=== PATIENT | female | born 1935 | race Caucasian/White ===

== ENCOUNTER → 2016-04-15 | Outpatient (CLI) | payer MEDICARE ==
[~2016-04-15] MED LIST: AC325T PO; ACHYD1T PO; ALBU2.5V12 INH; AMIO200T7 PO; ASPI-586 PO; ATOR20TA PO; ATOR40TA2 PO; BENZ-22 PO; BISA10SU6 RC; BISM262O PO; BMT1T PO; BUME2TAB3 PO; CALC-140 PO; CALC-676 PO; CARV12.52 PO; CARV25TA30 PO; CEPH-507 PO; CHOL10002 PO; CHOL200018 PO; CLIN-78 PO; DOCU100C8 PO; ECON15CR TP; FAMO-119 PO; FERR-74 PO; FERROUS GLUCON325 M2 PO; FLUT30CR2 TP; FRSM40T PO; FURO40TA4 PO; FURO80TA62 PO; HCT25T PO; HDRL25T PO; HYDR-3811 PO; HYDR-3921 PO; HYDR25CA PO; ISOS30TA7 PO; KCL10CCR PO; LOPE2CAP29 PO; LSRT50T PO; LVF500T PO; LVT.05T PO; MAG30ORA PO; MAG355OR17 PO; MAGN400O7 PO; MECL-105 PO; METAMUCIL425 GM PO; METO2.5T PO; NFLOSA25TA PO; NITR100C3 PO; NST15PW TOP; NTR.4SL SL; NYST30CR TOP; NYST30OI6 TOP; OMEP20CA12 PO; OMEP40CA36 PO; ONDA4TAB8 PO; OXB5T PO; OXYB5TAB9 PO; POLY17PO2 PO; POTA10TA10 PO; POTA10TA12 PO; POTA10TA36 PO; POTA10TA6 PO; PRAM0.12 PO; PRM25T PO; RIVA20TA PO; SERT50TA9 PO; SPRN25T PO; TRM50T PO; WARF1TAB6 PO; WARF2.5T PO; WARF3TAB PO; WRF2T PO; WRF3T PO; [UNRECOGNIZED DRUG - CODE] PO; [UNRECOGNIZED DRUG - OTHER] PO
[2016-04-15 11:00] LABS: BASOPHILS % (AUTO) 1 % (0-2); EOSINOPHILS # (AUTO) 0.1 10^3uL; EOSINOPHILS % (AUTO) 1 % (0-4); LYMPHOCYTES # (AUTO) 0.4 X10^3; MEAN CORPUSCULAR VOLUME 81 FL (80-100); MEAN PLATELET VOLUME 10.8 FL (6.0-9.5); MONOCYTES # (AUTO) 0.5 X10^3; MONOCYTES % (AUTO) 10 % (3-11); NEUTROPHILS # (AUTO) 4.3 X10^3; NEUTROPHILS % (AUTO) 80 % (51-67); PLATELET COUNT 159 10^3uL (150-450); WHITE BLOOD COUNT 5.37 10^3uL (4.0-11.0)
[2016-04-15 11:59] LABS: MEAN CORPUSCULAR HEMOGLOBIN 25.8 PG (26.0-34.0)
--- NOTE | 2016-04-15 12:00 | Diagnostic Imaging Report ---
PROCEDURE: CT abdomen and pelvis without contrast. TECHNIQUE: Multiple contiguous axial images were obtained through the abdomen and pelvis without the use of intravenous contrast. INDICATION: Abdominal pain with pedal edema. COMPARISON: CT chest, abdomen, pelvis of 02/07/2016. FINDINGS: There has been development of a small right and trace left pleural effusion. There is a small amount of relaxation atelectasis in the right lung base. Cardiomegaly without pericardial effusion. Coronary artery calcifications are present with partially imaged changes of CABG. Extensive calcifications of the aorta. Compared to prior exam, there has been progression in the abdominal ascites which is now small to moderate in volume. There is surface nodularity of the liver suggestive of cirrhosis. There are scattered calcified granulomas within the liver. Otherwise, no focal hepatic lesion seen by noncontrast imaging. Numerous calcified splenic granulomas are present and unchanged. By noncontrast imaging, the pancreas and adrenals are normal. Unchanged peripherally calcified cyst in the lower pole of the right kidney. Stable calcifications in the left renal hilum which are likely vascular in nature. No definite renal or ureteral calculi. Urinary bladder is distended without wall thickening. Status post hysterectomy. No pericolonic inflammatory changes are seen. There are surgical changes of right hemicolectomy with enterocolonic anastomosis in the right upper quadrant. No abdominal or pelvic lymphadenopathy. Numerous subcentimeter upper abdominal lymph nodes are likely reactive in nature. There is extensive vascular calcification of the abdominal aorta, which is normal in caliber. No concerning osseous lesions. Development of diffuse body wall edema indicative of anasarca. IMPRESSION: 1. Development of small to moderate abdominopelvic ascites, small pleural effusions and body wall edema. Findings suggest third spacing. 2. Question of nodular surface morphology of the liver which raises the concern for cirrhosis. Correlation with lab values is suggested. 3. Prior right hemicolectomy. No bowel obstruction. 4. Extensive vascular calcifications. Dictated by: Dictated on workstation # [id number]
[2016-04-15 14:32] LABS: ALBUMIN 3.8 g/dL (3.4-5.0); ANION GAP 18.1 MEQ/L (3-15); PHOSPHORUS 4.5 mg/dL (2.4-4.9)
== END ==
LOC: RAD 10:38
PROVIDERS: ATTEND Internal Medicine
DX: R10.84 Generalized abdominal pain (principal); I25.10 Atherosclerotic heart disease of native coronary artery without angina pectoris; I50.42 Chronic combined systolic (congestive) and diastolic (congestive) heart failure; R60.0 Localized edema; R18.8 Other ascites
CPT/HCPCS: 36415; 74176; 80069; 83880; 84450; 85025; 85610; 86140

== ENCOUNTER → 2016-05-01 | Outpatient (REF) | payer MEDICARE ==
[2016-05-01 11:24] LABS: ANION GAP 19.1 MEQ/L (3-15)
== END ==
LOC: LAB 10:47
PROVIDERS: ATTEND Internal Medicine
DX: Z51.81 Encounter for therapeutic drug level monitoring (principal); Z79.01 Long term (current) use of anticoagulants; R60.0 Localized edema
CPT/HCPCS: 80048; 85610

== ENCOUNTER → 2016-05-08 | Outpatient (REF) | payer MEDICARE ==
[2016-05-08 11:12] LABS: ANION GAP 17.9 MEQ/L (3-15)
== END ==
LOC: LAB 10:15
PROVIDERS: ATTEND Internal Medicine
DX: Z51.81 Encounter for therapeutic drug level monitoring (principal); Z79.01 Long term (current) use of anticoagulants; I25.10 Atherosclerotic heart disease of native coronary artery without angina pectoris; J44.9 Chronic obstructive pulmonary disease, unspecified
CPT/HCPCS: 80048; 85610

== ENCOUNTER → 2016-05-15 | Outpatient (REF) | payer MEDICARE ==
[2016-05-15 09:57] LABS: BASOPHILS % (AUTO) 1 % (0-2); EOSINOPHILS # (AUTO) 0.1 10^3uL; EOSINOPHILS % (AUTO) 2 % (0-4); LYMPHOCYTES # (AUTO) 0.8 X10^3; MEAN CORPUSCULAR HGB CONC 32.2 g/dL (31.0-37.0); MEAN CORPUSCULAR VOLUME 81 FL (80-100); MEAN PLATELET VOLUME 11.5 FL (6.0-9.5); MONOCYTES # (AUTO) 0.7 X10^3; MONOCYTES % (AUTO) 9 % (3-11); NEUTROPHILS # (AUTO) 5.6 X10^3; NEUTROPHILS % (AUTO) 78 % (51-67); PLATELET COUNT 180 10^3uL (150-450); WHITE BLOOD COUNT 7.19 10^3uL (4.0-11.0)
[2016-05-15 10:06] LABS: MEAN CORPUSCULAR HEMOGLOBIN 26.1 PG (26.0-34.0)
[2016-05-15 10:11] LABS: ANION GAP 18.3 MEQ/L (3-15)
== END ==
LOC: LAB 09:38
PROVIDERS: ATTEND Internal Medicine
DX: I50.9 Heart failure, unspecified (principal); I48.91 Unspecified atrial fibrillation; D50.9 Iron deficiency anemia, unspecified
CPT/HCPCS: 80048; 84450; 85025; 85610; 86140

== ENCOUNTER → 2016-05-21 | Outpatient (REF) | payer MEDICARE ==
[2016-05-21 09:55] LABS: ALBUMIN 4.2 g/dL (3.4-5.0); ANION GAP 17.9 MEQ/L (3-15); PHOSPHORUS 5.3 mg/dL (2.4-4.9)
== END ==
LOC: LAB 09:13
PROVIDERS: ATTEND Internal Medicine
DX: I50.42 Chronic combined systolic (congestive) and diastolic (congestive) heart failure (principal); N18.4 Chronic kidney disease, stage 4 (severe); I48.2 Chronic atrial fibrillation; I25.10 Atherosclerotic heart disease of native coronary artery without angina pectoris; F01.51 Vascular dementia, unspecified severity, with behavioral disturbance
CPT/HCPCS: 80069; 82607; 84443; 85652

== ENCOUNTER → 2016-05-27 | Outpatient (REF) | payer MEDICARE | LOC: LAB 09:25 | PROVIDERS: ATTEND Internal Medicine | DX: I48.2 Chronic atrial fibrillation (principal) | CPT/HCPCS: 85610 ==

== ENCOUNTER → 2016-06-03 | Outpatient (REF) | payer MEDICARE ==
[2016-06-03 10:55] LABS: ALBUMIN 3.9 g/dL (3.4-5.0); ANION GAP 18.6 MEQ/L (3-15); PHOSPHORUS 4.8 mg/dL (2.4-4.9)
== END ==
LOC: LAB 10:20
PROVIDERS: ATTEND Internal Medicine
DX: I10 Essential (primary) hypertension (principal)
CPT/HCPCS: 80069

== ENCOUNTER → 2016-06-10 | Outpatient (REF) | payer MEDICARE ==
[2016-06-10 10:13] LABS: BASOPHILS % (AUTO) 1 % (0-2); EOSINOPHILS # (AUTO) 0.1 10^3uL; EOSINOPHILS % (AUTO) 1 % (0-4); LYMPHOCYTES # (AUTO) 0.6 X10^3; MEAN CORPUSCULAR HGB CONC 32.6 g/dL (31.0-37.0); MEAN CORPUSCULAR VOLUME 86 FL (80-100); MONOCYTES # (AUTO) 0.6 X10^3; MONOCYTES % (AUTO) 11 % (3-11); NEUTROPHILS # (AUTO) 4.3 X10^3; NEUTROPHILS % (AUTO) 77 % (51-67); PLATELET COUNT 144 10^3uL (150-450)
== END ==
LOC: LAB 09:52
PROVIDERS: ATTEND Internal Medicine
DX: Z51.81 Encounter for therapeutic drug level monitoring (principal); Z79.01 Long term (current) use of anticoagulants; I10 Essential (primary) hypertension
CPT/HCPCS: 85025; 85610

== ENCOUNTER → 2016-06-11 | Outpatient (REF) | payer MEDICARE | LOC: LAB 09:47 | PROVIDERS: ATTEND Internal Medicine | DX: N39.0 Urinary tract infection, site not specified (principal) | CPT/HCPCS: 82570 ==

== ENCOUNTER → 2016-06-12 | Outpatient (REF) | payer MEDICARE ==
[2016-06-12 10:55] LABS: ALBUMIN 3.9 g/dL (3.4-5.0); ANION GAP 16.5 MEQ/L (3-15); PHOSPHORUS 4.6 mg/dL (2.4-4.9)
== END ==
LOC: LAB 09:49
PROVIDERS: ATTEND Internal Medicine
DX: Z51.81 Encounter for therapeutic drug level monitoring (principal); Z79.01 Long term (current) use of anticoagulants; N18.9 Chronic kidney disease, unspecified
CPT/HCPCS: 80069; 85610

== ENCOUNTER → 2016-06-15 | Outpatient (REF) | payer MEDICARE | LOC: LAB 09:58 | PROVIDERS: ATTEND Internal Medicine | DX: N18.4 Chronic kidney disease, stage 4 (severe) (principal) | CPT/HCPCS: 80048; 82570; 84300 ==

== ENCOUNTER → 2016-06-16 | Outpatient (CLI) | payer MEDICARE | LOC: RAD 10:02 | PROVIDERS: ATTEND Internal Medicine Nephrology | DX: R33.9 Retention of urine, unspecified (principal); N28.1 Cyst of kidney, acquired | CPT/HCPCS: 76770 ==

== ENCOUNTER → 2016-06-17 | Outpatient (REF) | payer MEDICARE | LOC: LAB 10:58 | PROVIDERS: ATTEND Internal Medicine | DX: Z51.81 Encounter for therapeutic drug level monitoring (principal); Z79.01 Long term (current) use of anticoagulants | CPT/HCPCS: 85610 ==

== ENCOUNTER → 2016-06-24 | Outpatient (CLI) | payer MEDICARE ==
[2016-06-24 10:29] LABS: ALBUMIN 3.7 g/dL (3.4-5.0); ANION GAP 17.9 MEQ/L (3-15); PHOSPHORUS 5.3 mg/dL (2.4-4.9)
== END ==
LOC: LAB 10:02
PROVIDERS: ATTEND Internal Medicine
DX: N18.4 Chronic kidney disease, stage 4 (severe) (principal); I48.2 Chronic atrial fibrillation
CPT/HCPCS: 80069; 85610

== ENCOUNTER 2016-06-26 13:00 | Outpatient (RCR) | payer MEDICARE ==
[~2016-06-26 13:00] MED LIST changes: -BISA10SU6 RC; -BISM262O PO; -MAG355OR17 PO; -PRM25T PO; -WARF1TAB6 PO
[2016-06-28] MEDS ORDERED: WARF1TAB6 PO (23:10)
[2016-06-28] MEDS ORDERED: METO2.5T PO (23:10)
[2016-06-28] MEDS ORDERED: BUME2TAB3 PO (23:11)
[2016-06-29] MEDS ORDERED: PRM25T PO (11:46)
[2016-06-29] MEDS ORDERED: MAG355OR17 PO (11:46)
[2016-06-29] MEDS ORDERED: BUME2TAB3 PO (11:46)
[2016-06-29] MEDS ORDERED: AC325T PO (11:46)
[2016-06-29] MEDS ORDERED: BISM262O PO (11:46)
[2016-06-29] MEDS ORDERED: BISA10SU6 RC (11:46)
== END 2016-08-31 | disposition home or self-care (01) ==
LOC: DT 13:00
PROVIDERS: ATTEND Internal Medicine
DX: E66.09 Other obesity due to excess calories (principal); N18.3 Chronic kidney disease, stage 3 (moderate); Z68.38 Body mass index [BMI] 38.0-38.9, adult
CPT/HCPCS: 97802; 97803

== ENCOUNTER → 2016-06-26 | Outpatient (CLI) | payer MEDICARE ==
[2016-06-26 14:30] LABS: ALBUMIN 3.5 g/dL (3.4-5.0); ANION GAP 16.1 MEQ/L (3-15)
== END ==
LOC: LAB 13:40
PROVIDERS: ATTEND Internal Medicine
DX: N18.4 Chronic kidney disease, stage 4 (severe) (principal); I48.2 Chronic atrial fibrillation
CPT/HCPCS: 36415; 80069; 85610

== ENCOUNTER 2016-06-28 21:42 | Inpatient (IN) | payer MEDICARE ==
[~2016-06-28] VITALS: Ht 149.9 cm; Wt 85.9 kg
[2016-06-28] MEDS ORDERED: ONDANSETRON 2 MG/ML (Z0FRAN) 2 ML VIAL IV ONE (22:10)
[2016-06-28 22:47] LABS: BASOPHILS % (AUTO) 0 % (0-2); EOSINOPHILS # (AUTO) 0.1 10^3uL; EOSINOPHILS % (AUTO) 1 % (0-4); LYMPHOCYTES # (AUTO) 0.3 X10^3; MEAN CORPUSCULAR HEMOGLOBIN 27.3 PG (26.0-34.0); MEAN CORPUSCULAR HGB CONC 33.7 g/dL (31.0-37.0); MEAN CORPUSCULAR VOLUME 81 FL (80-100); MEAN PLATELET VOLUME 10.7 FL (6.0-9.5); MONOCYTES # (AUTO) 0.9 X10^3; MONOCYTES % (AUTO) 13 % (3-11); NEUTROPHILS # (AUTO) 5.4 X10^3; NEUTROPHILS % (AUTO) 81 % (51-67); PLATELET COUNT 131 10^3uL (150-450); WHITE BLOOD COUNT 6.65 10^3uL (4.0-11.0)
[2016-06-28 23:02] LABS: ALBUMIN 3.4 g/dL (3.4-5.0); ANION GAP 18.5 MEQ/L (3-15); CALCULATED IONIZED CALCIUM 4.2 mg/dL (3.8-4.6); TOTAL PROTEIN 6.8 g/dL (6.4-8.5)
--- NOTE | 2016-06-28 23:12 | NUR ---
Pt unable to tell me her meds. EMS stated that "[facility] Dykes" was going to bring an updated med list but I have not seen them. EMS did give me a bag of medication and I confirmed those in the eMAR, however, the family states that the pt is on Lasix and may be on some of the others that are not in the bag. I did not confirm those on the eMAR but left them there just in case. No medications were deleted.
--- NOTE | 2016-06-28 23:36 | NUR ---
Skin tear to the right forearm measured at 7cm and is 'C' shaped. Cleaned with Safety Cleanse and folded the skin over the tear. Applied Tegaderm over the tear.
[2016-06-28] MEDS ORDERED: FUROSEMIDE 40 MG/4 ML (LASIX) VIAL IV ONE (23:45)
[2016-06-28] MEDS ORDERED: POTASSIUM CHLORIDE ER 20 MEQ TABLET PO ONE (23:50)
--- NOTE | 2016-06-28 23:53 | NUR ---
Spoke to Jennifer Gutierrez RN at [facility] and verified med list and Code status. Pt is a Full Code status.
[2016-06-29] MEDS ORDERED: ACETAMINOPHEN 325 MG TAB (TYLENOL) PO PRN ×2 (00:15→07:20)
[2016-06-29] MEDS ORDERED: POLYETHYLENE GLYCOL 17 GM (MIRALAX) PACKET PO PRN ×2 (00:15→07:20)
[2016-06-29] MEDS ORDERED: ONDANSETRON 2 MG/ML (Z0FRAN) 2 ML VIAL IV PRN (00:15)
--- NOTE | 2016-06-29 00:22 | NUR ---
Pts emmanuel area and panis from one hip to the other is EXTREMELY red, swollen and sore. It has some drainage as well. It appears that there may be some Nystatin crean or powder to the front area but the areas that are the worst toward the outside don't seem to have any cream or powder. Pt is VERY sensitive to touch even near those areas.
--- NOTE | 2016-06-29 00:39 | NUR ---
Report given to BECKA Bravo (ICU).
[2016-06-29 01:05] VITALS: BP 117/104
--- NOTE | 2016-06-29 01:05 | NUR ---
Pt admitted to Room 346 from ER via stretcher with dx: Acute Renal Injury. Pt presented to ER this evening after falling with skin tear to right forearm, which is covered with tegaderm upon admission. Pt also reported right shoulder pain with xray being negative. Pt denies pain in that area upon admission to room. Pt is alert and oriented, but has some mild confusion. Is unable to provide a good history. Pt has known history of A-fib and CHF. Pt has bilateral swelling in legs with redness on left leg. Pt has pitting edema 2+. Pt is wearing O2 at 2L per NC, which she wears at home at [facility]. Barragan catheter in place, clear yellow urine. Spouse and daughter accompanied pt to room and participated with assessment of patient by Dr. Haas. Telemetry upon admittance shows A-fib with variable rate 40's-80's. Pt's panis is extremely red, raw and some swelling. Cleansed area, pt grimaced at times, painful when touching. No other needs at this time.
[2016-06-29 01:07] LABS: BILIRUBIN,URINE Negative (Negative); CLARITY,URINE Clear; COLOR,URINE Yellow; GLUCOSE, URINE (UA) Negative (Negative); LEUKOCYTE ESTERASE ,URINE Negative (Negative); UROBILINOGEN,URINE 0.2 mg/dL (0.2-1.0)
[2016-06-29 01:34] LABS: URINE CENTRIFUGED VOLUME 10 mL
[2016-06-29 01:35] LABS: AMORPHOUS SEDIMENT,UR 3+ /HPF
[2016-06-29] MEDS: NYSTATIN TOP SCH ×4 (03:33→18:33)
--- NOTE | 2016-06-29 03:40 | NUR ---
Applied Nystatin cream to panis folds and groin area. Used ABDs X 8 to keep area dry. Pt tolerated well even though skinis very raw and tender. Will continue to monitor.
[2016-06-29 04:00] VITALS: BP 123/51
[2016-06-29] MEDS: FUROSEMIDE 40 MG/4 ML (LASIX) VIAL IV SCH ×4 (05:42→23:49)
--- NOTE | 2016-06-29 06:48 | NUR ---
NUTRITION ASSESSMENT Level 1 Patient: Santiago Guo Age/Sex: 81/F Date Screened: 06-29-16 Weight: 202.4#/92 kg Height: 9 inches Primary Diagnosis: kbfmg-vs-cbuxrmc kidney disease, fall Diet Order: 2 g. sodium Relevant labs: sodium 130, potassium 3.3, BUN 103, creatinine 2.13, glucose 120 Food allergies: N Nutrition Assessment Criteria Age over 80: N Body Mass Index (BMI) under 19: N Admission Screening Indicates Risk? 6 points Moderate/High Risk Diagnosis: 6 points TPN or PPN: N NPO or clear liquid diet: N Serum Glucose <70 or >180: N Hgb A1c >6.7: N/A Total: 12 points Risk Screen: __ Patient at low nutritional risk based on available data; reevaluate in 5-7 days __ Patient at moderate nutritional risk based on available data; reevaluate in 3-5 days _X_ Patient at high nutritional risk; complete Nutrition Assessment within 48 hours of admission.
[2016-06-29] MEDS ORDERED: MAGNESIUM HYDROXIDE 80MG/ML (MILK OF MAGNESIA) 30 ML UDC PO PRN (07:20)
[2016-06-29] MEDS ORDERED: LOPERAMIDE 2 MG (IMODIUM) CAP PO PRN (07:20)
[2016-06-29] MEDS ORDERED: ALBUTEROL 0.083% NEB SOLUTION 2.5 MG/3 ML VIAL INH PRN (07:20)
[2016-06-29 08:00] VITALS: BP 122/62
[2016-06-29] MEDS ORDERED: CARVEDILOL 12.5 MG (COREG) TABLET PO SCH ×2 (08:00→18:00)
--- NOTE | 2016-06-29 08:30 | NUR ---
NUTRITION ASSESSMENT Level II Patient: Santiago Guo Age/Sex: 81/F Date Assessed: 06-29-16 ASSESSMENT Pertinent History: Patient admitted with ochrk-vs-boymgts kidney disease after a fall at home, and screened at high nutritional risk secondary to diagnosis, unintentional weight gain from fluid, and difficulty understanding her renal diet at home. PMHx includes CAD, hx colon cancer, HTN, dyslipidemia, a fib and CKD stage 4. Noted she has skin breakdown in emmanuel area/panis that is inflamed and painful. I recently met with patient, , daughter and nlgjsfij-tx-okt regarding pt.s renal diet in the outpatient setting. Pt. and were vague in her usual food intake and demonstrated poor understanding of dietary restrictions, but their daughter and kgbstqlq-sz-lms understood. Multiple family members cook for pt. and and ensure they have adequate and appropriate food intake. Pt.'s usual breakfast consists of fruit and c. milk. Lunch is often a salad with sliced chicken or a sandwich, and dinner is made by family such as lasagna, spaghetti with meat sauce, or chicken enchiladas. Pt.'s UBW is ~184#; this was most recently documented on 06-02-16. Meds/Nutrition: Synthroid, Pepcid, Colace, vitamin D, Lasix Weight: 202.4#/92 kg Height: 59 inches Body Mass Index (BMI): 41.0 [place] Body Weight : 95#/43.1 kg % IBW: 213% GASTROINTESTINAL Appetite: good Diet Order: 2 g. sodium Unintentional loss of >10 lbs. in 3 months: N Difficult to chew/swallow: N Diabetes: N Relevant Labs: sodium 130, potassium 3.3, BUN 103, creatinine 2.13, glucose 120 Calculations for Nutritional Assessment Estimated calorie needs: 22-25 kcals/kg UBW = 1,900-2,075 kcals Estimated protein needs: 0.6-0.8 g/kg UBW = 49-66 g./day protein Other nutritional needs with CKD: 10-12 mg phos/g protein = 490-790 mg phos/day; potassium unrestricted until serum levels are elevated DIAGNOSIS 1. Nutrition Diagnosis: Altered nutrition-related lab values (phosphorus) related to kidney disease as evidenced by CKD stage 4 with hx. hyperphosphatemia. NUTRITIONAL INTERVENTION Goal: Patient will receive adequate nutrition to meet her needs and maintain renal function. Plan: Agree with 2 g. sodium diet, but recommend renal restrictions with 50-66 g. protein/day and <800 mg phosphorus. When I met with daughter and ygyvykiy-nt-ixu last week, I recommended that they portion out meals into 1-cup, premeasured portion sizes and then freeze, rather than freezing an entire meal. That will make it easier to track protein/phosphorus content because they will know how much is in each serving. Pt. can eat more than 1 serving for a meal (assuming she has not reached her maximum intake), but it's a way of better tracking her intake. Dietary potassium is unrestricted at this time, and unnecessary until her serum levels are elevated. MONITORING & EVALUATION _X_ Monitor patients menu selections _X_ Monitor patients food intake per nursing notes __ Monitor NPO/clear liquid days _X_ Monitor lab values __ Monitor I&O _X_ Other--monitor weight
[2016-06-29] MEDS: SERTRALINE 50 MG (ZOLOFT) TABLET PO SCH (08:32)
[2016-06-29] MEDS: DOCUSATE SODIUM 100 MG (COLACE) CAP PO SCH (08:33)
[2016-06-29] MEDS: CALCIUM CARBONATE 500 MG + VITAMIN D 200 IU TABLET PO SCH (08:33)
[2016-06-29] MEDS: FAMOTIDINE 20 MG (PEPCID) TABLET PO SCH ×2 (08:33→20:39)
[2016-06-29] MEDS: hydrALAZINE 25 MG (APRESOLINE) TABLET PO SCH ×2 (08:33→20:36)
[2016-06-29] MEDS: LEVOTHYROXINE 50 MCG (LEVOTHROID) TABLET PO SCH (08:33)
[2016-06-29] MEDS: CHOLECALCIFEROL 1000 INT UNITS (VITAMIN D3) TABLET PO SCH (08:33)
[2016-06-29] MEDS: NYSTATIN POWDER 100,000 UNITS 15 GM BTL TOP SCH ×3 (08:34→18:33)
--- NOTE | 2016-06-29 11:50 | NUR ---
Med Rec completed via list from [facility].
[2016-06-29 12:00] VITALS: BP 95/60
[2016-06-29] MEDS: SODIUM CHLORIDE FLUSH 10 ML SYR IV PRN (12:04)
[2016-06-29 16:00] VITALS: BP 124/66
[2016-06-29] MEDS: SODIUM CHLORIDE FLUSH 3 ML SYR IV PRN (17:53)
[2016-06-29] MEDS: POTASSIUM CHLORIDE ER 20 MEQ TABLET PO SCH (17:54)
[2016-06-29] MEDS ORDERED: CARVEDILOL 6.25 MG (COREG) TAB PO SCH (18:00)
--- NOTE | 2016-06-29 18:06 | NUR ---
AM Patient is up this AM for exam, medications and morning meal. The patient is weak with pain in right shoulder and leg that she rates a 5/10. Ultram PO [id number] given. She is independent for meals and interventions and able to make needs known. Kaylah is alert to person and place at this time. Respirations are even and unlabored and VSS. BLE of 2+ pitting. Monitor reads atrial fibrilation between 40-80 HR. After morning hygiene nystatin ointment and powder applied under skin folds on abdomen and a barrier put in place. Tata is being turned q2Hrs and feet elevated. She voices no complaints and is cooperative with PT this AM as she is up to the side of the bed to let her feet dangle with 2 assist. and daughter at the bedside. PM After lunch Nystatin ointment applied and barrier in place. Kaylah rests quietly in bed without complaint and is under covers with eyes closed. Family at the bedside. VSS and the patient remains calm, cooperative and compliant. Respirations are even and unlabored. Kaylah is being turned for comfort and ultram PO [id number] given to help with right shoulder and leg pain. Currently the patient is up in bed eating supper with at the bedside. Call light in reach, she is able to make needs known.
--- NOTE | 2016-06-29 18:53 | NUR ---
Report given to Shelly JOVEL and care relinquished
--- NOTE | 2016-06-29 19:00 | NUR ---
Report received, care assumed. Repoisitioned patient with pillows. Spouse at bedside. Pt denies discomfort. Cooperative with staff. Denies other needs at this time.
--- NOTE | 2016-06-29 19:05 | NUR ---
Spoke with Dr. Chapman regarding labs for patient, received new orders.
[2016-06-29 20:00] VITALS: BP 99/48
--- NOTE | 2016-06-29 20:05 | NUR ---
BMP results received and relayed to Dr. Chapman, requested redraw. Notified lab of need to redraw.
--- NOTE | 2016-06-29 20:37 | NUR ---
Holding tonight's dose of Hydralazine due to low BP 99/[address] Chapman med will be held.
[2016-06-29] MEDS: ATORVASTATIN 40 MG (LIPITOR) TABLET PO SCH (20:38)
[2016-06-29] MEDS: ASPIRIN 81 MG CHEW (CHILDREN'S ASA) PO SCH (20:39)
--- NOTE | 2016-06-29 20:40 | NUR ---
Notified Dr. Chapman of potassium levels. No new orders.
[2016-06-29] MEDS ORDERED: NON-FORMULARY MEDICATION 1 EA EA (Aspirin (Aspir 81) 81 MG) PO SCH (21:00)
--- NOTE | 2016-06-29 23:05 | NUR ---
Pt's heart rate dropping into 30's and 40's with increasing frequency, remains at these rates for a few seconds then increases back to 50's. Pt has demonstrated being extremely fatigued this evening. Pt presently sleeping at this time. Notified Dr. Chapman of fluctuation in pt's heart rate, received order to discontinue Coreg. Will continue to monitor.
[2016-06-30] VITALS (7 sets, daily range): BP systolic 97–124; BP diastolic 33–72
[2016-06-30 06:03] LABS: BASOPHILS % (AUTO) 1 % (0-2); EOSINOPHILS # (AUTO) 0.1 10^3uL; EOSINOPHILS % (AUTO) 2 % (0-4); LYMPHOCYTES # (AUTO) 0.6 X10^3; MEAN CORPUSCULAR HEMOGLOBIN 27.1 PG (26.0-34.0); MEAN CORPUSCULAR HGB CONC 32.8 g/dL (31.0-37.0); MEAN CORPUSCULAR VOLUME 83 FL (80-100); MONOCYTES # (AUTO) 0.6 X10^3; MONOCYTES % (AUTO) 13 % (3-11); NEUTROPHILS # (AUTO) 3.7 X10^3; NEUTROPHILS % (AUTO) 73 % (51-67); PLATELET COUNT 125 10^3uL (150-450); WHITE BLOOD COUNT 5.11 10^3uL (4.0-11.0)
[2016-06-30] MEDS: FUROSEMIDE 40 MG/4 ML (LASIX) VIAL IV SCH ×3 (06:17→17:31)
[2016-06-30] MEDS: SODIUM CHLORIDE FLUSH 10 ML SYR IV PRN ×3 (06:17→17:31)
[2016-06-30 06:36] LABS: ANION GAP 16.6 MEQ/L (3-15); CALCULATED IONIZED CALCIUM 4.4 mg/dL (3.8-4.6); MAGNESIUM* 2.3 mg/dL (1.6-2.3); TOTAL PROTEIN 6.1 g/dL (6.4-8.5)
[2016-06-30] MEDS: LEVOTHYROXINE 50 MCG (LEVOTHROID) TABLET PO SCH (08:25)
[2016-06-30] MEDS: SERTRALINE 50 MG (ZOLOFT) TABLET PO SCH (08:25)
[2016-06-30] MEDS: FAMOTIDINE 20 MG (PEPCID) TABLET PO SCH (08:25)
[2016-06-30] MEDS: POTASSIUM CHLORIDE ER 20 MEQ TABLET PO SCH ×2 (08:25→17:30)
[2016-06-30] MEDS: DOCUSATE SODIUM 100 MG (COLACE) CAP PO SCH (08:25)
[2016-06-30] MEDS: CALCIUM CARBONATE 500 MG + VITAMIN D 200 IU TABLET PO SCH (08:25)
[2016-06-30] MEDS: CHOLECALCIFEROL 1000 INT UNITS (VITAMIN D3) TABLET PO SCH (08:25)
--- NOTE | 2016-06-30 08:30 | NUR ---
PT is up in bed for assessment, medications and meal. Kala is drowsy and prompts are needed to keep her awake. She is able to take medications and participate in cares. Skin is clean and dry and respirations are even and unlabored. VSS with heart rate showing afib with occasional rates in the 30s. Hydralazine PO discontinued at this time.
[2016-06-30] MEDS: NYSTATIN POWDER 100,000 UNITS 15 GM BTL TOP SCH ×3 (09:00→18:00)
--- NOTE | 2016-06-30 10:00 | NUR ---
in the room at this time and assists Kala with meal completion. Nystatin ointment applied under skin folds after cleaning with soap and water. Pillow case used to keep skin from touching. Patient handles intervention well. She continues to be drowsy but opens eyes to voice and is cooperative.
[2016-06-30] MEDS: HEPARIN 5000 UNIT/0.5 ML SYRINGE SC SCH ×3 (10:32→22:12)
[2016-06-30] MEDS: NYSTATIN TOP SCH ×3 (10:32→18:57)
--- NOTE | 2016-06-30 11:00 | NUR ---
PT is in the room to work with the patient at this time. With 2 assist the patient is able to move from the bed to the chair. Patient is able to bare weight but struggles taking steps and assistance is required. She handles procedure and cares without complaint.
--- NOTE | 2016-06-30 11:30 | NUR ---
Morning hygiene is completed and the patient is under the covers with feet elevated at this time. A small amount of conway emesis is collected at this time as the patient makes needs known. No further complaint of nausea but the patient states "I think my breakfast just came up." Will continue to monitor, emesis basin at the bedside.
[2016-06-30] MEDS ORDERED: NYSTATIN CREAM (MYCOSTATIN) 30 GM TUBE TOP ONE (12:14)
--- NOTE | 2016-06-30 12:30 | NUR ---
Daughter and in the room to assist with cares and needs for lunch
--- NOTE | 2016-06-30 13:45 | NUR ---
OT in to work with the patient at this time
--- NOTE | 2016-06-30 14:30 | NUR ---
Patient is repositioned in chair at this time and feet elevated. She has no complaints and is able to make needs known. Nystatin cream is reapplied under skin folds and skin barrier in place. Currently Kala is up in chair feet elevated, eyes closed, under the covers. Hear Rate between 40-75.
--- NOTE | 2016-06-30 17:30 | NUR ---
The patient is up in chair eating at this time. at the bedside. Pulse continues to fluctuate from 40 to 80 in Atrial Fibrilation. The patient has no complaints.
--- NOTE | 2016-06-30 17:45 | NUR ---
The patient vomits 100 cc's of food into emesis bag at this time. 4mg of IV zofran given. Tolerates well. Tata requests to continue eating strawberries. Nor further nausea or emesis
[2016-06-30] MEDS: SODIUM CHLORIDE FLUSH 3 ML SYR IV PRN (17:58)
--- NOTE | 2016-06-30 18:08 | NUR ---
dressing to skin tear on RFA changed at this time. New Tegaderm applied. CDI
--- NOTE | 2016-06-30 18:58 | NUR ---
Report given to Luisa JOVEL and care relinquished.
[2016-06-30] MEDS: ASPIRIN 81 MG CHEW (CHILDREN'S ASA) PO SCH (22:12)
[2016-06-30] MEDS: ATORVASTATIN 40 MG (LIPITOR) TABLET PO SCH (22:12)
[2016-07-01] MEDS: SODIUM CHLORIDE FLUSH 10 ML SYR IV PRN ×3 (00:16→12:09)
[2016-07-01] MEDS: FUROSEMIDE 40 MG/4 ML (LASIX) VIAL IV SCH ×4 (00:16→17:37)
[2016-07-01] MEDS: SODIUM CHLORIDE FLUSH 3 ML SYR IV PRN ×2 (00:16→06:20)
[2016-07-01 00:19] VITALS: BP 108/64
[2016-07-01 04:06] VITALS: BP 103/50
[2016-07-01 06:13] LABS: MEAN CORPUSCULAR HEMOGLOBIN 27.7 PG (26.0-34.0); MEAN CORPUSCULAR HGB CONC 32.9 g/dL (31.0-37.0); MEAN CORPUSCULAR VOLUME 84 FL (80-100); MEAN PLATELET VOLUME 11.6 FL (6.0-9.5); PLATELET COUNT 116 10^3uL (150-450); WHITE BLOOD COUNT 5.61 10^3uL (4.0-11.0)
[2016-07-01] MEDS: HEPARIN 5000 UNIT/0.5 ML SYRINGE SC SCH (06:20)
[2016-07-01 06:32] LABS: ALBUMIN 3.2 g/dL (3.4-5.0); ANION GAP 16.8 MEQ/L (3-15); CALCULATED IONIZED CALCIUM 4.3 mg/dL (3.8-4.6); MAGNESIUM* 2.2 mg/dL (1.6-2.3); TOTAL PROTEIN 6.3 g/dL (6.4-8.5)
[2016-07-01 06:39] LABS: SEGMENTED NEUTROPHILS % 70 % (51-67)
[2016-07-01 06:40] LABS: ANISOCYTOSIS MODERATE; BAND NEUTROPHILS % 0 % (0-6); EOSINOPHILS % 1 % (0-4); MONOCYTES # 0.6 #; MONOCYTES % 11 % (3-11); RBC MORPH SEE REFERENCE (NORMAL); TOTAL CELLS COUNTED 100
--- NOTE | 2016-07-01 07:31 | NUR ---
Pt. resting in bed, awakens easily. Oriented to self and place, but thinks it is December 2019. Reoriented to time and situation. Pt. denies pain, but reports a dry mouth. Water provided. She denies n/v or dyspnea. Skin under panus is red and excoriated, applying Nystatin cream as ordered. LLE near ankle is red, though per report, has decreased in intensity. Pt. denies needs at this time.
[2016-07-01 07:37] VITALS: BP 118/53
[2016-07-01] MEDS: POTASSIUM CHLORIDE ER 20 MEQ TABLET PO SCH (07:44)
[2016-07-01] MEDS: CALCIUM CARBONATE 500 MG + VITAMIN D 200 IU TABLET PO SCH (08:06)
[2016-07-01] MEDS: SERTRALINE 50 MG (ZOLOFT) TABLET PO SCH (08:06)
[2016-07-01] MEDS: DOCUSATE SODIUM 100 MG (COLACE) CAP PO SCH (08:07)
[2016-07-01] MEDS: LEVOTHYROXINE 50 MCG (LEVOTHROID) TABLET PO SCH (08:07)
[2016-07-01] MEDS: CHOLECALCIFEROL 1000 INT UNITS (VITAMIN D3) TABLET PO SCH (08:08)
[2016-07-01] MEDS: NYSTATIN TOP SCH ×3 (08:09→17:36)
[2016-07-01] MEDS: NYSTATIN POWDER 100,000 UNITS 15 GM BTL TOP SCH ×3 (08:10→17:36)
[2016-07-01] MEDS ORDERED: FAMOTIDINE 20 MG (PEPCID) TABLET PO SCH (09:00)
[2016-07-01] MEDS ORDERED: ALBUTEROL 0.083% NEB SOLUTION 2.5 MG/3 ML VIAL INH PRN (09:49)
[2016-07-01] MEDS ORDERED: MAGNESIUM HYDROXIDE 80MG/ML (MILK OF MAGNESIA) 30 ML UDC PO PRN (09:50)
[2016-07-01] MEDS ORDERED: LOPERAMIDE 2 MG (IMODIUM) CAP PO PRN (09:50)
[2016-07-01] MEDS ORDERED: POLYETHYLENE GLYCOL 17 GM (MIRALAX) PACKET PO PRN (09:51)
[2016-07-01] MEDS ORDERED: SODIUM CHLORIDE FLUSH 3 ML SYR IV PRN (09:52)
--- NOTE | 2016-07-01 10:30 | NUR ---
Patient transferred to room 310 via wheelchair from ICU accompanied by RN and . Alert and oriented to self only. Responses delayed and physical movement appears delayed. Transferred to chair using 2 assist, walker, and gait belt. Denies pain. Barragan catheter intact and draining clear yellow urine. Reoriented patient to place and situation. TABS intact for safety. Call light in reach.
--- NOTE | 2016-07-01 10:47 | NUR ---
Pt. transferred to [facility] at this time via WC. Assisted to WC x2 assist using gait belt and walker. Accompanied off unit by PT, RN and spouse. All belongings sent with pt. Report has been given to Melinda Julian RN.
[2016-07-01 11:47] VITALS: BP 113/65
[2016-07-01] MEDS ORDERED: FUROSEMIDE 40 MG/4 ML (LASIX) VIAL IV SCH (12:00)
[2016-07-01 16:00] VITALS: BP 113/58
[2016-07-01] MEDS: ACETAMINOPHEN 325 MG TAB (TYLENOL) PO PRN (17:36)
[2016-07-01] MEDS ORDERED: POTASSIUM CHLORIDE ER 20 MEQ TABLET PO SCH (18:00)
--- NOTE | 2016-07-01 18:20 | NUR ---
Patient remains in recliner throughout afternoon. Confused and drowsy. Telemetry intact and reflecting a-fib at a rate of 70bpm. PRN Tylenol provided for c/o right shoulder pain. Barragan catheter draining dark yellow urine. Will continue to monitor.
[2016-07-01] MEDS: ASPIRIN 81 MG CHEW (CHILDREN'S ASA) PO SCH (20:57)
[2016-07-01] MEDS: ATORVASTATIN 40 MG (LIPITOR) TABLET PO SCH (20:58)
--- NOTE | 2016-07-01 21:00 | NUR ---
Patient assisted from recliner to bed with two staff. Moves feet slowly, but does listen to cues. Remains disoriented at times. Erica area and abdominal folds very red and somewhat swollen. Areas carefully cleansed with warm cloth and dried. Nystatin powder to areas. Sterile 4x4's to folds. Lower right seth warm to touch. Scds off for the night.
[2016-07-01 21:19] VITALS: BP 110/60
[2016-07-02] VITALS (7 sets, daily range): BP systolic 110–128; BP diastolic 60–69
[2016-07-02] MEDS: LEVOTHYROXINE 50 MCG (LEVOTHROID) TABLET PO SCH (06:13)
--- NOTE | 2016-07-02 06:38 | NUR ---
Rested at long intervals tonight. Repositioned every 2 to 3 hours. Patient remains confused to place and time. Is cooperative. Scd's placed on this morning and patient tolerates them well. Telemetry shows A-fib rate in the 60's to 70's. Patient denies any discomforts. Erica care given. Erica area reddened. Barragan drains yellow urine. Skin tear to right upper arm slowly healing. Dressing to area changed without difficulty. Steri strips to area, covered with non-adherent dressing. Takes liquids when offered. Takes pills without difficulty. Call light within reach.
[2016-07-02] MEDS: POTASSIUM CHLORIDE ER 20 MEQ TABLET PO SCH (08:51)
[2016-07-02] MEDS: FAMOTIDINE 20 MG (PEPCID) TABLET PO SCH (08:51)
[2016-07-02] MEDS: CHOLECALCIFEROL 1000 INT UNITS (VITAMIN D3) TABLET PO SCH (08:51)
[2016-07-02] MEDS: SERTRALINE 50 MG (ZOLOFT) TABLET PO SCH (08:51)
[2016-07-02] MEDS: CALCIUM CARBONATE 500 MG + VITAMIN D 200 IU TABLET PO SCH (08:51)
[2016-07-02] MEDS: DOCUSATE SODIUM 100 MG (COLACE) CAP PO SCH (08:51)
[2016-07-02] MEDS: FUROSEMIDE 40 MG/4 ML (LASIX) VIAL IV SCH (09:00)
[2016-07-02] MEDS: NYSTATIN POWDER 100,000 UNITS 15 GM BTL TOP SCH ×3 (10:50→17:52)
[2016-07-02] MEDS: NYSTATIN TOP SCH ×3 (10:50→17:52)
--- NOTE | 2016-07-02 11:04 | NUR ---
Pt is quite confused. Thought she was at [address], the year was "19 something", thought her birthday was [birth year] or [id number]. She did not know the president's name but said he had "funky hair". Pt is alert and pleasant. Skin warm, dry. No edema noted to lower extremities. Bilateral posterior hips noted to be red with 2+ pitting edema. Pt denies pain with this. Groin slightly red, patted dry after her shower. Nystatin applied. Pt pivots slowly to [facility] with max 2 assist. Pt requires frequent verbal cuing to place hands on walker and move each foot. Bed alarm on for safety. Denies needs. Call light within reach.
[2016-07-02] MEDS: BUMETANIDE 1 MG (BUMEX) TAB PO SCH ×2 (11:23→20:26)
--- NOTE | 2016-07-02 11:26 | NUR ---
O2 sats 98% on 2L. Titrated to 1L at this time. RT notified.
--- NOTE | 2016-07-02 11:32 | NUR ---
MULTIDISCIPLINARY MTG/DR. CABRERA: Pt. lucas was removed today. Pt. was taken to the shower today. Pt. has been struggling to have a bowel movement. Pt. given more bowel regimen. Pt. has been very week and slow to process during this hospitalization. Doctor will order ST to work with Pt. cognitively. Pt. has been changed to oral diuretics. Pt. would benefit from skilled care upon discharge. SW checked with [facility] and Pt. was discharged from them on 04/28/16. Pt. has now had 60 days of wellness and would have skilled days available to her. Will obtain placement at [facility] upon discharge.
--- NOTE | 2016-07-02 12:55 | NUR ---
O2 sats 98% on 1L. Titrated to RA at this time. RT notified.
[2016-07-02] MEDS: ONDANSETRON 2 MG/ML (Z0FRAN) 2 ML VIAL IV PRN (13:13)
--- NOTE | 2016-07-02 13:14 | NUR ---
PVR 167mL sitting up in chair. Pt had incontinent void of urine prior to sitting on commode to have BM. Sit to stand lift used. Pt did not have results sitting on commode, but was noted to have hard small pieces of stool at the opening of the rectum upon standing back up. Digital disimpaction provided, pt tolerated this fairly. A large number of hard pieces of stool removed from first 2 inches of rectum. Will continue to monitor. PRN bowel regimen medications provided. Pt sitting up in chair at this time.
--- NOTE | 2016-07-02 18:32 | NUR ---
Pt had incontinent void of urine; PVR at 1730 showed 17mL. Pt continues to be confused this shift. Utilizing sit to stand lift for transfers, pt tolerates this well. Skin warm, dry, intact. Nystatin applied to groin folds. Resprs nonlabored, even on RA. Call light within reach. Denies needs.
[2016-07-02] MEDS: ATORVASTATIN 40 MG (LIPITOR) TABLET PO SCH (20:24)
[2016-07-02] MEDS: ASPIRIN 81 MG CHEW (CHILDREN'S ASA) PO SCH (20:24)
--- NOTE | 2016-07-02 20:43 | NUR ---
Pt placed on 2 l/min NC for SPO2 of 88% and noc use.
[2016-07-03 03:47] VITALS: BP 110/60
[2016-07-03] MEDS: LEVOTHYROXINE 50 MCG (LEVOTHROID) TABLET PO SCH (06:14)
--- NOTE | 2016-07-03 06:31 | NUR ---
Patient rests in bed throughout night without needs. Up in chair at this time on 2L O2. Remains confused to place, time, birthdate. Knows name. No needs at this time.
[2016-07-03 06:34] LABS: BASOPHILS % (AUTO) 1 % (0-2); EOSINOPHILS # (AUTO) 0.1 10^3uL; EOSINOPHILS % (AUTO) 2 % (0-4); LYMPHOCYTES # (AUTO) 0.7 X10^3; MEAN CORPUSCULAR VOLUME 84 FL (80-100); MEAN PLATELET VOLUME 10.5 FL (6.0-9.5); MONOCYTES # (AUTO) 0.9 X10^3; MONOCYTES % (AUTO) 12 % (3-11); NEUTROPHILS # (AUTO) 5.9 X10^3; NEUTROPHILS % (AUTO) 77 % (51-67); PLATELET COUNT 160 10^3uL (150-450); WHITE BLOOD COUNT 7.65 10^3uL (4.0-11.0)
[2016-07-03 07:00] LABS: ALBUMIN 3.2 g/dL (3.4-5.0); ANION GAP 17.3 MEQ/L (3-15); CALCULATED IONIZED CALCIUM 4.2 mg/dL (3.8-4.6); MAGNESIUM* 2.1 mg/dL (1.6-2.3); TOTAL PROTEIN 6.5 g/dL (6.4-8.5)
--- NOTE | 2016-07-03 07:25 | NUR ---
Patient sleeping in recliner upon shift assessment. Arouses easily to verbal stimuli. Appears drowsy and lethargic. Alert and oriented to person but not place or situation. Reports right shoulder pain. Denies nausea or SOA. HS oxygen titrated to roomair for day. HR irregular, telemetry intact and reflecting a-fib at a rate of 87 bpm. Lung sounds diminished throughout. BLE with no edema but skin is reddened. Reoriented to place, situation, and plan of care for shift. TABS and yellow gown intact for safety. Will continue to monitor.
[2016-07-03 07:28] LABS: MEAN CORPUSCULAR HEMOGLOBIN 26.8 PG (26.0-34.0)
[2016-07-03 07:50] VITALS: BP 125/74
[2016-07-03] MEDS: SERTRALINE 50 MG (ZOLOFT) TABLET PO SCH (08:26)
[2016-07-03] MEDS: POTASSIUM CHLORIDE ER 20 MEQ TABLET PO SCH (08:26)
[2016-07-03] MEDS: CALCIUM CARBONATE 500 MG + VITAMIN D 200 IU TABLET PO SCH (08:26)
[2016-07-03] MEDS: DOCUSATE SODIUM 100 MG (COLACE) CAP PO SCH (08:26)
[2016-07-03] MEDS: FAMOTIDINE 20 MG (PEPCID) TABLET PO SCH (08:26)
[2016-07-03] MEDS: NYSTATIN POWDER 100,000 UNITS 15 GM BTL TOP SCH ×3 (08:27→17:35)
[2016-07-03] MEDS: CHOLECALCIFEROL 1000 INT UNITS (VITAMIN D3) TABLET PO SCH (08:27)
[2016-07-03] MEDS: ACETAMINOPHEN 325 MG TAB (TYLENOL) PO PRN ×2 (08:27→20:03)
[2016-07-03] MEDS: NYSTATIN TOP SCH ×3 (08:27→17:34)
[2016-07-03] MEDS: BUMETANIDE 1 MG (BUMEX) TAB PO SCH ×2 (10:05→14:56)
[2016-07-03 11:36] VITALS: BP 134/72
--- NOTE | 2016-07-03 13:02 | NUR ---
Information sent to [facility] for review of acceptance to skilled care. Pt. has been accepted to [facility] with anticipated discharge next week.
[2016-07-03 15:34] VITALS: BP 126/75
--- NOTE | 2016-07-03 18:15 | NUR ---
Patient sits up in recliner during day shift. Ins-mk-ghggo lift used to transfer patient to commode to void. Toileted Q2 hours. PRN Tylenol provided on one occasion. No apparent signs of pain or distress this afternoon. Remains alert and oriented to self only. and daughter at bedside. TABS intact for safety. Call light in reach.
[2016-07-03 19:47] VITALS: BP 140/76
[2016-07-03] MEDS: ASPIRIN 81 MG CHEW (CHILDREN'S ASA) PO SCH (20:01)
[2016-07-03] MEDS: ATORVASTATIN 40 MG (LIPITOR) TABLET PO SCH (20:01)
--- NOTE | 2016-07-03 20:03 | NUR ---
PRN Tylenol given at this time for c/o R arm aches. Denies other needs. Call light within reach.
[2016-07-04 00:07] VITALS: BP 134/69
[2016-07-04 04:00] VITALS: BP 143/63
[2016-07-04 05:43] LABS: BASOPHILS % (AUTO) 1 % (0-2); EOSINOPHILS # (AUTO) 0.1 10^3uL; EOSINOPHILS % (AUTO) 2 % (0-4); LYMPHOCYTES # (AUTO) 0.6 X10^3; MEAN CORPUSCULAR HEMOGLOBIN 27.3 PG (26.0-34.0); MEAN CORPUSCULAR HGB CONC 32.2 g/dL (31.0-37.0); MEAN CORPUSCULAR VOLUME 85 FL (80-100); MEAN PLATELET VOLUME 10.9 FL (6.0-9.5); MONOCYTES % (AUTO) 13 % (3-11); NEUTROPHILS # (AUTO) 5.5 X10^3; NEUTROPHILS % (AUTO) 75 % (51-67); PLATELET COUNT 159 10^3uL (150-450); WHITE BLOOD COUNT 7.24 10^3uL (4.0-11.0)
[2016-07-04 06:00] LABS: ALBUMIN 3.2 g/dL (3.4-5.0); ANION GAP 15.8 MEQ/L (3-15); CALCULATED IONIZED CALCIUM 4.1 mg/dL (3.8-4.6); TOTAL PROTEIN 6.6 g/dL (6.4-8.5)
[2016-07-04] MEDS: LEVOTHYROXINE 50 MCG (LEVOTHROID) TABLET PO SCH (06:33)
--- NOTE | 2016-07-04 06:48 | NUR ---
Pt continues to be confused this shift. Utilizing sit to stand lift for transfers, pt tolerates this well. Skin warm, dry, intact. Resprs nonlabored, even on 2L NC. Call light within reach. Pt sleeping in chair at this time. Denies needs.
[2016-07-04 08:05] VITALS: BP 134/65
[2016-07-04] MEDS: POTASSIUM CHLORIDE ER 20 MEQ TABLET PO SCH (08:51)
[2016-07-04] MEDS: FAMOTIDINE 20 MG (PEPCID) TABLET PO SCH (08:51)
[2016-07-04] MEDS: BUMETANIDE 1 MG (BUMEX) TAB PO SCH ×2 (08:51→15:23)
[2016-07-04] MEDS: DOCUSATE SODIUM 100 MG (COLACE) CAP PO SCH (08:51)
[2016-07-04] MEDS: CHOLECALCIFEROL 1000 INT UNITS (VITAMIN D3) TABLET PO SCH (08:51)
[2016-07-04] MEDS: CALCIUM CARBONATE 500 MG + VITAMIN D 200 IU TABLET PO SCH (08:51)
[2016-07-04] MEDS: NYSTATIN POWDER 100,000 UNITS 15 GM BTL TOP SCH ×3 (08:51→20:00)
[2016-07-04] MEDS: SERTRALINE 50 MG (ZOLOFT) TABLET PO SCH (08:53)
[2016-07-04] MEDS: NYSTATIN TOP SCH ×3 (09:00→18:00)
[2016-07-04 12:32] VITALS: BP 131/81
--- NOTE | 2016-07-04 16:13 | NUR ---
Pt continues to rest in chair, up frequently to use BSC, incontinent at times. Remains confused, seems more sleepy today, family at bedside. Pt is max assist of 2 and gait belt, shuffles feet when attempting to walk.
[2016-07-04 16:31] VITALS: BP 131/81
[2016-07-04 20:26] VITALS: BP 134/66
--- NOTE | 2016-07-04 20:30 | NUR ---
Patient resting in recliner chair, and wanting to use commode. Remains confused yet pleasant. Used sit to stand to place her on commode. Patient incontinent a small amount. Voided 150cc in commode. Good emmanuel care given and then placed in bed. Lower flank areas remain edematous. The left side is more red than right. Abdomen and emmanuel area reddened and swollen. Nystatin creme to abdominal folds that remain red and groin areas. Emmanuel area remains reddened and slightly swollen. Patient denies any discomforts. Oxygen remains in at 2 lpm per NC. Call light within reach.
[2016-07-04] MEDS: ASPIRIN 81 MG CHEW (CHILDREN'S ASA) PO SCH (20:50)
[2016-07-04] MEDS: ATORVASTATIN 40 MG (LIPITOR) TABLET PO SCH (20:51)
[2016-07-05 00:04] VITALS: BP 141/83
[2016-07-05 04:00] VITALS: BP 153/80
[2016-07-05] MEDS: LEVOTHYROXINE 50 MCG (LEVOTHROID) TABLET PO SCH (06:06)
[2016-07-05 06:15] LABS: BASOPHILS % (AUTO) 0 % (0-2); EOSINOPHILS # (AUTO) 0.2 10^3uL; EOSINOPHILS % (AUTO) 2 % (0-4); LYMPHOCYTES # (AUTO) 0.8 X10^3; MEAN CORPUSCULAR HEMOGLOBIN 27.1 PG (26.0-34.0); MEAN CORPUSCULAR VOLUME 85 FL (80-100); MEAN PLATELET VOLUME 12.5 FL (6.0-9.5); MONOCYTES # (AUTO) 1.2 X10^3; MONOCYTES % (AUTO) 13 % (3-11); NEUTROPHILS # (AUTO) 6.7 X10^3; NEUTROPHILS % (AUTO) 76 % (51-67); PLATELET COUNT 154 10^3uL (150-450); WHITE BLOOD COUNT 8.91 10^3uL (4.0-11.0)
--- NOTE | 2016-07-05 06:26 | NUR ---
Patient rested at long intervals tonight. Oxygen remains on at 2 lpm per NC. Respirations even and non-labored. Is alert, yet remains confused. Erica care done and antifungal used. Areas on groin, pubic area remain reddened. No open areas. Patient is able to make needs known. Takes meds without difficulty. No discomforts at this time. Call light within reach.
[2016-07-05 07:14] LABS: ALBUMIN 3.5 g/dL (3.4-5.0); ANION GAP 15.5 MEQ/L (3-15); MAGNESIUM* 2.1 mg/dL (1.6-2.3); PHOSPHORUS 3.7 mg/dL (2.4-4.9)
[2016-07-05 07:35] VITALS: BP 132/84
--- NOTE | 2016-07-05 07:40 | NUR ---
STERI-STRIPS D/I TO RFA, PROX TO ELBOW, NO ACTIVE BLEEDING/DRAINAGE NOTED AT THIS TIME. PT HAS MULTIPLE BRUISES ON FA & HANDS IN VARIOUS STAGES OF HEALING. PT'S SPEECH MUMBLED, LIKELY DUE TO DRY MOUTH, HAND STRENGTH WEAK BUT EQUAL BILAT. WILL REASSESS SPEECH WHEN PT AWAKE/ALERT.
[2016-07-05] MEDS: POTASSIUM CHLORIDE ER 20 MEQ TABLET PO SCH (08:38)
[2016-07-05] MEDS: CALCIUM CARBONATE 500 MG + VITAMIN D 200 IU TABLET PO SCH (08:38)
[2016-07-05] MEDS: CHOLECALCIFEROL 1000 INT UNITS (VITAMIN D3) TABLET PO SCH (08:39)
[2016-07-05] MEDS: SERTRALINE 50 MG (ZOLOFT) TABLET PO SCH (08:39)
[2016-07-05] MEDS: FAMOTIDINE 20 MG (PEPCID) TABLET PO SCH (08:39)
[2016-07-05] MEDS: DOCUSATE SODIUM 100 MG (COLACE) CAP PO SCH (08:39)
[2016-07-05] MEDS: BUMETANIDE 1 MG (BUMEX) TAB PO SCH ×2 (08:48→15:43)
[2016-07-05] MEDS: NYSTATIN TOP SCH ×3 (09:00→17:43)
[2016-07-05] MEDS: NYSTATIN POWDER 100,000 UNITS 15 GM BTL TOP SCH ×3 (09:00→17:43)
--- NOTE | 2016-07-05 09:00 | NUR ---
TOPICAL SKIN RX HELD AT THIS TIME DUE TO PT BEING UP IN THE CHAIR, UNABLE TO REACH THESE AREAS.
--- NOTE | 2016-07-05 09:30 | NUR ---
PT CALLS FOR ASSIST TO TOILET, PT STS SHE THINKS SHE CAN PIVOT TRANSFER TO BSC, WITH GAIT BELT & WALKER PT IS ABLE TO STAND, UNABLE TO STAY IN UPRIGHT POSITION WITHOUT MAX ASSIST X2, BEARS WEIGHT WITH CUES TO TUCK IN BOTTOM & STAND UP STRAIGHT, PT UNABLE TO LIFT OR SHUFFLE FEET TO TURN BOTTOM TOWARDS BSC. PT SITS BACK IN CHAIR AND PT IS ASSISTED TO BSC USING [id number] LIFT, PT TOLS FAIR, DENIES PAIN EXCEPT HER TOES, LIKELY HER FEET ARE SLIDING FORWARD, SHOES REPOS, PT VOIDS SMALL AMT CONC. URINE, REQ TO GO BACK TO CHAIR.
[2016-07-05 11:32] VITALS: BP 131/76
--- NOTE | 2016-07-05 12:00 | NUR ---
PT'S AT BEDSIDE, ASSISTS PT TO EAT, SHE HAS POOR APPETITE, TAKES A FEW BITES THEN C/O NAUSEA, HAS SMALL AMT CLEAR SALIVE
--- NOTE | 2016-07-05 12:00 | NUR ---
CONT - CLEAR SALIVA-LIKE EMESIS, CONT TO EAT. 1238 PT HAS APPROX 200ML EMESIS, COOL CLOTHS TO FACE & NECK, ZOFRAN ADMIN AT 1238 SIVP. ENC. TO REST, TRAY REMOVED, PT REQ TO STAY IN CHAIR AT THIS TIME.
[2016-07-05] MEDS: ONDANSETRON 2 MG/ML (Z0FRAN) 2 ML VIAL IV PRN (12:38)
[2016-07-05] MEDS: SODIUM CHLORIDE FLUSH 10 ML SYR IV PRN (12:39)
--- NOTE | 2016-07-05 13:00 | NUR ---
PT ASSISTED TO BSC USING [id number] LIFT, HAS SMALL AMT URINE, XLG STOOL, 1ST WAS HARD SMALL PIECES OF STOOL, FOLLOWED BY BROWN SOFT/FORMED STOOL. PT TO BED USING LIFT, POS ON RIGHT SIDE.
[2016-07-05 15:44] VITALS: BP 122/77
--- NOTE | 2016-07-05 17:00 | NUR ---
PT TO [facility], ATTEMPTED TO TRANSFER/PIVOT USING WALKER WITH GAIT BELT AND ASSIST X2, UNABLE TO MOVE OR SHUFFLE FEET, [id number] LIFT USED.THIS WAS DISCUSSED AT LENGTH WITH PT'S DTR WHO VERBALIZES CONCERN OF USING LIFT, IT WAS DISCUSSED THIS TYPE OF TRANSFER IS SAFE FOR PT & FOR STAFF AND THAT PT/OT WILL BE SEEING PT THIS WEEK WITH GOALS TO INCREASE ACTIVITY TOLERANCE/ABILITY TO TRANSFER. DTR ASKS QUESTIONS ABOUT PT'S MEDS, THIS WAS DISCUSSED & PT'S DTR WAS SATISIFIED WITH LIST OF MEDS AT THIS TIME.
--- NOTE | 2016-07-05 18:10 | NUR ---
PT ASSISTED TO BED FOLLOWING ARACELIS MEAL, PT TAKES 2-3 BITES OF FRUIT. FAMILY REMAINS AT BEDSIDE.
[2016-07-05 19:31] VITALS: BP 125/77
--- NOTE | 2016-07-05 20:00 | NUR ---
Resting in bed. Is awake. Patient remains confused. Is alert. Oxygen placed on at 2 lpm per NC. Respirations even and non-labored. Repositioned in bed. Steri strips removed from skin tear to right forearm. Wound cleanser used, and patted dry. Wound healing well without signs of infection. Small steri strips applied. Areas covered by large band aid for protection. Skin warm and dry. Color pale. Call light with in reach.
[2016-07-05] MEDS: ATORVASTATIN 40 MG (LIPITOR) TABLET PO SCH (20:46)
[2016-07-05] MEDS: ASPIRIN 81 MG CHEW (CHILDREN'S ASA) PO SCH (20:46)
[2016-07-05] MEDS: ACETAMINOPHEN 325 MG TAB (TYLENOL) PO PRN (20:46)
--- NOTE | 2016-07-05 20:46 | NUR ---
HS cares given. Tylenol 650 mg administered for right shoulder discomfort.
--- NOTE | 2016-07-06 | NUR ---
Rests well. Turned and repositioned. Oxygen remains on at 2 liters. Patient disoriented. Pleasant.
[2016-07-06 00:15] VITALS: BP 130/72
[2016-07-06 04:01] VITALS: BP 128/72
[2016-07-06 06:36] LABS: MEAN CORPUSCULAR HEMOGLOBIN 27.2 PG (26.0-34.0); MEAN CORPUSCULAR HGB CONC 32.8 g/dL (31.0-37.0); MEAN CORPUSCULAR VOLUME 83 FL (80-100); MEAN PLATELET VOLUME 10.7 FL (6.0-9.5); PLATELET COUNT 139 10^3uL (150-450)
[2016-07-06 06:46] LABS: ALBUMIN 3.4 g/dL (3.4-5.0); ANION GAP 18.5 MEQ/L (3-15); BAND NEUTROPHILS % 0 % (0-6); EOSINOPHILS % 0 % (0-4); LYMPHOCYTES # 0.9 #; MAGNESIUM* 2.2 mg/dL (1.6-2.3); MONOCYTES # 1.4 #; MONOCYTES % 15 % (3-11); PHOSPHORUS 4.9 mg/dL (2.4-4.9); SEGMENTED NEUTROPHILS % 75 % (51-67); TOTAL CELLS COUNTED 100
--- NOTE | 2016-07-06 06:46 | NUR ---
Resting in bed. Used sit to stand lift to get patient to the commode. She voided 150 cc of urine. Placed in recliner chair. Patient still has edema in trunk and arms. Patient is cooperative. Patient is awake, yet seems less alert. Is unable to walk, or move feet when asked to, but does bear weight. Tolerates sit to stand lift well.
[2016-07-06 06:47] LABS: ANISOCYTOSIS MARKED; RBC MORPH SEE REFERENCE (NORMAL)
[2016-07-06] MEDS: LEVOTHYROXINE 50 MCG (LEVOTHROID) TABLET PO SCH (07:09)
[2016-07-06 07:16] VITALS: BP 138/72
[2016-07-06] MEDS: FAMOTIDINE 20 MG (PEPCID) TABLET PO SCH (08:21)
[2016-07-06] MEDS: CHOLECALCIFEROL 1000 INT UNITS (VITAMIN D3) TABLET PO SCH (08:21)
[2016-07-06] MEDS: SERTRALINE 50 MG (ZOLOFT) TABLET PO SCH (08:21)
[2016-07-06] MEDS: CALCIUM CARBONATE 500 MG + VITAMIN D 200 IU TABLET PO SCH (08:21)
[2016-07-06] MEDS: DOCUSATE SODIUM 100 MG (COLACE) CAP PO SCH (08:21)
[2016-07-06] MEDS: ONDANSETRON 2 MG/ML (Z0FRAN) 2 ML VIAL IV PRN (08:23)
[2016-07-06] MEDS: SODIUM CHLORIDE FLUSH 10 ML SYR IV PRN (08:23)
[2016-07-06] MEDS ORDERED: ASPIRIN 325 MG TAB PO ONE (08:25)
--- NOTE | 2016-07-06 08:44 | NUR ---
patient is down for xray at this time
[2016-07-06] MEDS: NYSTATIN TOP SCH (09:00)
[2016-07-06] MEDS: NYSTATIN POWDER 100,000 UNITS 15 GM BTL TOP SCH (09:00)
--- NOTE | 2016-07-06 09:03 | NUR ---
Tata returns from radiology and is up in shower chair with assist of 2 for morning hygiene
--- NOTE | 2016-07-06 09:59 | NUR ---
Nutrition Follow Up: Patient is not doing well today; she had been eating bites-75% since admission (with average intake 42%), but since yesterday she has only eaten bites. Physician reported sluggishly feeding herself breakfast this morning; noted troponin sharply elevated today, with worsening creatinine. She is unable to walk or move her feet on her own. Weight today: 188.9#/85.9 kg--this is down 13.9# in the past week from diuresing Labs: sodium 134, potassium 5.7, BUN 79, creatinine 2.56, glucose 107, troponin 0.407 1. Will tailor her 2 g. sodium menu to also reflect protein recommendations per CKD stage IV as previously recommended--50-66 g./day. 2. Smaller portions will also be implemented, with nutrient-dense snacks between meals if possible. Due to extreme weakness and some confusion noted, she may be better off with liquid shakes, with the protein content carefully monitored. Will follow closely with physician re: plan of care.
[2016-07-06 10:40] LABS: ALBUMIN 3.6 g/dL (3.4-5.0); BILIRUBIN CONJUGATED 2.8 mg/dL (0.0-0.4); TOTAL PROTEIN 7.4 g/dL (6.4-8.5)
[2016-07-06 11:05] VITALS: BP 125/71
[2016-07-06] MEDS ORDERED: LACTULOSE ORAL SOLUTION 10 GM/15 ML UDC PO ONE (11:40)
--- NOTE | 2016-07-06 13:03 | NUR ---
Report called to Chantel JOVEL at [facility]. EMT alerted and transfer is pending arrival
--- NOTE | 2016-07-06 13:25 | NUR ---
EMT in the room and the patient transfers at this time
[2016-07-07] MEDS ORDERED: ASPIRIN 81 MG CHEW (CHILDREN'S ASA) PO SCH (21:00)
== END 2016-07-06 13:25 | disposition short-term general hospital (02) | DRG 280 ==
LOC: ED 22:05 → ICU 06-29 00:28 → MED/SURG 07-01 10:45
PROVIDERS: ADMIT Pediatrics; ATTEND Pediatrics
DX: I13.0 Hypertensive heart and chronic kidney disease with heart failure and stage 1 through stage 4 chronic kidney disease, or unspecified chronic kidney disease (principal); I21.4 Non-ST elevation (NSTEMI) myocardial infarction; I50.23 Acute on chronic systolic (congestive) heart failure; K72.00 Acute and subacute hepatic failure without coma; N17.9 Acute kidney failure, unspecified; N18.4 Chronic kidney disease, stage 4 (severe); R53.1 Weakness; I48.2 Chronic atrial fibrillation; I25.10 Atherosclerotic heart disease of native coronary artery without angina pectoris; I07.1 Rheumatic tricuspid insufficiency; Z95.1 Presence of aortocoronary bypass graft; Z85.038 Personal history of other malignant neoplasm of large intestine
CPT/HCPCS: 36415; 51702; 70450; 71010; 71020; 73030; 80048; 80053; 80069; 80076; 81003; 81015; 82140; 82550; 82553; 83735; 83880; 84443; 84484; 85025; 85610; 85730; 86140; 93005; 93010; 94760; 99285

== ENCOUNTER → 2016-06-28 | Outpatient (CLI) | payer MEDICARE | LOC: EMS 21:50 | PROVIDERS: ATTEND Family Medicine | DX: M79.601 Pain in right arm (principal); R55 Syncope and collapse; R42 Dizziness and giddiness ==

== ENCOUNTER → 2016-07-06 | Outpatient (CLI) | payer MEDICARE | LOC: EMS 13:33 | PROVIDERS: ATTEND Internal Medicine Hospice and Palliative Medicine | DX: I21.4 Non-ST elevation (NSTEMI) myocardial infarction (principal); K72.90 Hepatic failure, unspecified without coma; R79.89 Other specified abnormal findings of blood chemistry ==

== ENCOUNTER → 2016-08-13 | Outpatient (REF) | payer MEDICARE ==
[~2016-08-13] MED LIST changes: +BISA10SU6 RC; +BISM262O PO; +MAG355OR17 PO; +PRM25T PO; +WARF1TAB6 PO
== END ==
LOC: LAB 11:43
PROVIDERS: ATTEND Internal Medicine
DX: Z53.8 Procedure and treatment not carried out for other reasons (principal)

== ENCOUNTER → 2016-08-14 | Outpatient (REF) | payer MEDICARE ==
[2016-08-14 08:58] LABS: BASOPHILS % (AUTO) 1 % (0-2); EOSINOPHILS # (AUTO) 0.1 10^3uL; EOSINOPHILS % (AUTO) 1 % (0-4); LYMPHOCYTES # (AUTO) 0.5 X10^3; MEAN CORPUSCULAR HEMOGLOBIN 28.6 PG (26.0-34.0); MEAN CORPUSCULAR HGB CONC 32.1 g/dL (31.0-37.0); MEAN CORPUSCULAR VOLUME 89 FL (80-100); MEAN PLATELET VOLUME 11.1 FL (6.0-9.5); MONOCYTES # (AUTO) 0.6 X10^3; MONOCYTES % (AUTO) 10 % (3-11); NEUTROPHILS # (AUTO) 4.6 X10^3; NEUTROPHILS % (AUTO) 80 % (51-67); PLATELET COUNT 84 10^3uL (150-450); WHITE BLOOD COUNT 5.73 10^3uL (4.0-11.0)
[2016-08-14 09:06] LABS: ALBUMIN 3.3 g/dL (3.4-5.0); ANION GAP 18.3 MEQ/L (3-15); CALCULATED IONIZED CALCIUM 3.9 mg/dL (3.8-4.6); TOTAL PROTEIN 6.9 g/dL (6.4-8.5)
[2016-08-15 06:51] LABS: BILIRUBIN CONJUGATED 0.3 mg/dL (0.0-0.4)
== END ==
LOC: LAB 08:39
PROVIDERS: ATTEND Internal Medicine
DX: N18.6 End stage renal disease (principal); I25.10 Atherosclerotic heart disease of native coronary artery without angina pectoris; I48.2 Chronic atrial fibrillation
CPT/HCPCS: 80053; 82248; 83880; 84443; 84484; 85025